=== PATIENT | female | born 1985 | race Caucasian/White ===

== ENCOUNTER → 2016-12-08 | Outpatient (CLI) | payer BC, OTHER ==
[~2016-12-08] MED LIST: PRENTAB26 PO
== END | disposition home or self-care (01) ==
LOC: C.LAB 18:25
PROVIDERS: ATTEND Obstetrics & Gynecology
DX: Z34.81 Encounter for supervision of other normal pregnancy, first trimester (principal)

== ENCOUNTER → 2016-12-10 | Outpatient (CLI) | payer BC, OTHER | END | disposition home or self-care (01) | LOC: C.LAB 17:54 | PROVIDERS: ATTEND Obstetrics & Gynecology | DX: Z34.81 Encounter for supervision of other normal pregnancy, first trimester (principal) ==

== ENCOUNTER → 2016-12-16 | Outpatient (CLI) | payer BC, OTHER ==
[2016-12-20 01:31] LABS: CHLAMYDIA TRACH RNA*** NOT DETECTED (NOT DETECTED); GC (NEIS GONORRHOEAE)RNA** NOT DETECTED (NOT DETECTED)
== END | disposition home or self-care (01) ==
LOC: C.LABSPEC 14:51
PROVIDERS: ATTEND Obstetrics & Gynecology
DX: Z34.81 Encounter for supervision of other normal pregnancy, first trimester (principal)

== ENCOUNTER → 2017-01-29 | Outpatient (CLI) | payer BC, OTHER ==
[2017-01-29 09:59] LABS: BASO % 0.5 %; BASO ABS # 0.03 K/uL (0-0.2); COMPLETE YES; EOS % 3.1 %; HEMATOCRIT 37.4 % (37-47); IG% 0.2 %; LYMPH % 20.8 %; LYMPH ABS # 1.32 K/uL (1.2-3.4); MEAN CORPUSCULAR HEMOGLOBIN 30.5 pg (25-34); MEAN CORPUSCULAR HGB CONC 34.2 g/dl (32-36); MEAN PLATELET VOLUME 9.9 fL (7.4-10.4); MONO % 4.2 %; NEUT % 71.2 %; PLATELET COUNT 215 K/uL (130-400); WHITE BLOOD COUNT 6.36 K/uL (4.8-10.8)
[2017-01-29 11:46] LABS: GTGD 50 Grams
== END | disposition home or self-care (01) ==
LOC: C.LAB 07:01
PROVIDERS: ATTEND Obstetrics & Gynecology
DX: Z34.82 Encounter for supervision of other normal pregnancy, second trimester (principal)

== ENCOUNTER → 2017-03-02 | Outpatient (CLI) | payer BC, OTHER | END | disposition home or self-care (01) | LOC: C.LABSPEC 15:42 | PROVIDERS: ATTEND Obstetrics & Gynecology | DX: O26.892 Other specified pregnancy related conditions, second trimester (principal); R05 Cough; O99.512 Diseases of the respiratory system complicating pregnancy, second trimester; J02.9 Acute pharyngitis, unspecified ==

== ENCOUNTER 2017-07-20 03:08 | Inpatient (IN) | payer BC, OTHER ==
[~2017-07-20] VITALS: Ht 175.3 cm; Wt 95.0 kg
[2017-07-22] MEDS ORDERED: LACTATED RINGER'S 1000ML 1,000 ML IV PRN (09:45)
[2017-07-22] MEDS ORDERED: LACTATED RINGER'S 1000ML 500 ML IV PRN ×2 (09:48→15:24)
[2017-07-22] MEDS ORDERED: OXYTOCIN 30 UNITS/500ML NSS IV PRN ×2 (10:00→23:45)
[2017-07-22 10:17] VITALS: Ht 175.3 cm; Wt 95.0 kg
[2017-07-22] MEDS ORDERED: PRENTAB26 PO (10:19)
[2017-07-22 10:22] LABS: HEMATOCRIT 39.1 % (37-47); MEAN CELL VOLUME 92.2 fL (80-100); MEAN CORPUSCULAR HEMOGLOBIN 30.9 pg (25-34); MEAN CORPUSCULAR HGB CONC 33.5 g/dl (32-36); MEAN PLATELET VOLUME 9.9 fL (7.4-10.4); PLATELET COUNT 188 K/uL (130-400); RED BLOOD COUNT 4.24 M/uL (4.2-5.4); WHITE BLOOD COUNT 9.21 K/uL (4.8-10.8)
[2017-07-22] MEDS: LACTATED RINGER'S 1000ML 1,000 ML IV SCH ×3 (11:05→22:06)
[2017-07-22] MEDS ORDERED: FENTANYL CITRATE INJ 50 MCG/1 ML 2 ML VIAL ONE (14:42)
[2017-07-22] MEDS ORDERED: BUPIVACAINE 0.25% 30 ML VIAL ONE (14:42)
[2017-07-22] MEDS ORDERED: FENTANYL 2MCG/ML ROPIV 1.25MG/ML 100ML BAG EPI ONE (14:42)
[2017-07-22] MEDS ORDERED: EpHEDrine SULFATE INJ 50 MG/ML AMP ONE (14:42)
[2017-07-22] MEDS ORDERED: NALOXONE HCL INJ 0.4 MG/1 ML VIAL/CARP IV PRN (15:30)
[2017-07-22] MEDS ORDERED: EpHEDrine SULFATE INJ 50 MG/ML AMP IV PRN (15:30)
[2017-07-22] MEDS ORDERED: FENTANYL 2MCG/ML ROPIV 1.25MG/ML 100ML BAG EPI PRN (15:30)
[2017-07-22] MEDS ORDERED: METHYLERGONOVINE MALEATE 0.2 MG/ML AMP ONE (23:12)
[2017-07-22] MEDS ORDERED: OXYCODONE/ACETAMINOPHEN 5-325 TAB PO PRN (23:45)
[2017-07-22] MEDS ORDERED: BENZOCAINE 20% AER SPR 82.5 GM CAN EXT PRN (23:45)
[2017-07-22] MEDS ORDERED: HYDROCORTISONE ACETATE 25 MG SUPP PR PRN (23:45)
[2017-07-22] MEDS ORDERED: DIPHTHERIA/TETANUS/PERTUSSIS 0.5 ML SYR/VIAL IM. ONE (23:45)
[2017-07-22] MEDS ORDERED: SUPERCREAM 0.870 % 15GM JAR EXT PRN (23:45)
[2017-07-22] MEDS ORDERED: ACETAMINOPHEN/CODEINE 300/30MG TAB PO PRN (23:45)
[2017-07-22] MEDS ORDERED: LANOLIN OINT EXT PRN ×2 (23:45)
[2017-07-22] MEDS ORDERED: METHYLERGONOVINE MALEATE 0.2 MG/ML AMP IM ONE (23:45)
--- NOTE | 2017-07-22 23:48 | Anesthesia Procedure Note ---
Anesthesia Epidural Removal Nt Date & Time Jul 22, 2017 at 23:48 Vital Signs Pain Intensity: 0.0 Notes Mental Status: alert / awake / arousable, participated in evaluation Nausea / Vomiting: adequately controlled Pain: adequately controlled Airway Patency, RR, SpO2: stable & adequate BP & HR: stable & adequate Hydration State: stable & adequate Neuraxial Anesthesia: was administered Anesthetic Complications: no major complications apparent, pt satisfied with anesthetic care Epidural: removed without complications, with tip intact
[2017-07-23] VITALS (7 sets, daily range): BP systolic 103–129; BP diastolic 60–79; PULSE 65–85; TEMP 36.5–36.9; O2SAT 96–97
--- NOTE | 2017-07-23 01:02 | DELIVERY SUMMARY ---
DATE OF OPERATION: 07/22/2017 The patient is a 32-year-old 2, para 1. She has had 1 spontaneous AB first trimester. She is rubella immune. Beta strep screen negative. Glucose screen good. She was admitted for induction of labor, being past her due date, which was 07/15/2017. Her cervix was ripe on admission, 4+ cm. She was started on IV Pitocin and eventually she developed the labor pattern. Membranes were ruptured, fluid was clear. She received epidural anesthesia for pain control and the Pitocin was turned up until she had regular pattern of about contraction every 2-3 minutes. She slowly but steadily delivered a live female via direct occiput anterior position over an intact perineum. Infant was suctioned through the mouth and the nose. Shoulders were delivered with a mild amount of difficulty. Cord was clamped, cut by the father. There was some terminal meconium noted. With IV Pitocin running, the placenta was removed intact. Inspection of the perineum revealed 2 superficial sulcus lacerations that also extended into the labia. Both of these were repaired with a running 2-0 Vicryl. Then there was another superficial laceration on the patient's left labia, which was repaired with 3-0 chromic. A small perineal laceration which was bleeding was repaired with 3-0 chromic. Following this, vag examination revealed no hematoma formation or sponges in the vagina and uterus contracted nicely with a combination of IV Pitocin and IM Methergine. Estimated blood loss was about 600 mL. I attest to the content of the Intraoperative Record and any orders documented therein. Any exception s are noted below.
[2017-07-23] MEDS: IBUPROFEN 600 MG TAB PO PRN ×3 (01:49→19:21)
[2017-07-23] MEDS: ACETAMINOPHEN/CODEINE 300/30MG TAB PO PRN ×3 (01:53→19:21)
[2017-07-23 06:39] LABS: HEMATOCRIT 35.8 % (37-47)
[2017-07-23] MEDS: PRENATAL VITAMIN TAB PO SCH (08:38)
[2017-07-23] MEDS: DOCUSATE SODIUM 100 MG CAP PO SCH ×2 (08:38→20:12)
[2017-07-23] MEDS: FERROUS SULFATE 325 MG TAB PO SCH (08:38)
[2017-07-23] MEDS: ACETAMINOPHEN 325 MG TAB PO PRN (08:39)
--- NOTE | 2017-07-23 18:03 | Progress Note ---
Subjective Jul 23, 2017. Subjective conversation w/ patient Ambulation: ambulating normally Voiding: no voiding problems Passing Gas: Yes Diet Tolerance: Regular Diet Lochia: Small Feeding Type: Breast Feeding Review of Systems Constitutional: + fever Objective Vital Signs Date Time Temp Pulse Resp B/P (MAP) Pulse Ox O2 Delivery O2 Flow Rate FiO2 07/23/17 16:30 Room Air 07/23/17 16:30 36.8 66 18 106/66 (79) Room Air 07/23/17 11:45 36.7 85 16 105/73 (84) 97 Room Air 07/23/17 08:15 Room Air 07/23/17 08:15 36.6 65 16 104/68 (80) 96 Room Air 07/23/17 04:00 36.5 70 16 129/79 (96) Room Air 07/23/17 02:15 Room Air 07/23/17 02:15 36.7 66 16 107/64 (78) Room Air Physical Exam General Appearance: WELL-APPEARING Fundus: Firm, Non-Tender Extremities: no pedal edema, no calf tenderness Laboratory Results Last 24 Hours Test 07/23/17 06:15 Hemoglobin 12.1 g/dL Hematocrit 35.8 % Assessment and Plan Post- Day#: 1
[2017-07-23] MEDS ORDERED: BISACODYL 5 MG TABEC PO SCH (20:00)
[2017-07-24] MEDS: ACETAMINOPHEN 325 MG TAB PO PRN ×3 (02:13→13:33)
[2017-07-24] MEDS ORDERED: BISACODYL 10 MG SUPP PR PRN (07:00)
[2017-07-24 07:10] VITALS: BP 101/66; PULSE 90; TEMP 36.2; O2SAT 96
--- NOTE | 2017-07-24 07:34 | Progress Note ---
Subjective Jul 24, 2017. Subjective conversation w/ patient Ambulation: ambulating normally Voiding: no voiding problems Passing Gas: Yes Diet Tolerance: Clear Liquids Lochia: Small Feeding Type: Breast Feeding Review of Systems Constitutional: + fever Objective Vital Signs Date Time Temp Pulse Resp B/P (MAP) Pulse Ox O2 Delivery O2 Flow Rate FiO2 07/24/17 07:10 36.2 90 20 101/66 (78) 96 Room Air 07/23/17 23:40 Room Air 07/23/17 23:40 36.6 79 18 103/66 (78) Room Air 07/23/17 20:00 36.9 81 18 105/60 (75) Room Air 07/23/17 16:30 Room Air 07/23/17 16:30 36.8 66 18 106/66 (79) Room Air 07/23/17 11:45 36.7 85 16 105/73 (84) 97 Room Air 07/23/17 08:15 Room Air 07/23/17 08:15 36.6 65 16 104/68 (80) 96 Room Air Physical Exam General Appearance: WELL-APPEARING Abdomen: non tender Fundus: Firm, Non-Tender Extremities: no pedal edema, no calf tenderness Assessment and Plan Post- Day#: 2
--- NOTE | 2017-07-24 07:36 | Discharge Instructions ---
Discharge Instructions Date of Service Jul 24, 2017. Admission Reason for Admission: IUP Discharge Discharge Diagnosis / Problem: post term induction Discharge Goals Goal(s): Routine recovery after delivery Activity Recommendations Activity Limitations: as noted below ACTIVITY RECOMMENDATIONS: * Gradual return to full activity over the next 2-3 weeks. * No lifting - nothing heavier than baby over the next 2-3 weeks. * Do not engage in vigorous exercise, sexual activity or sports until cleared by your physician. * Do not drive or operate any motorized equipment until cleared by your physician. * You may shower/bathe daily. DIET: Resume Previous Diet If Breast-feeding: * Increase caloric intake by 500 calories, eat 3 well balanced meals, 2 high protein snacks a day and drink 6-8 8oz. glasses of fluid per day. BREAST CARE: If you are not breast feeding: * Wear a supportive bra 24 hours a day for one to two weeks. * Avoid stimulating your breasts and nipples as much as possible during the first few weeks after delivery. * When taking a shower, have the warm water hit your back, not breasts. * When your breasts feel full, apply ice packs. Usually three to four times a day helps ease the discomfort. * Take a mild pain medication (Tylenol / Motrin) when you are uncomfortable. If breast feeding: * Use breast milk to lubricate nipples. Lansinoh cream may be used for sore nipples. You do not need to remove cream prior to breast feeding. If using a different brand of cream, check the label for directions regarding removal of cream prior to nursing. * Wear a supportive bra. * If having problems with breasts or breast feeding, call a car sales consultant or your health care provider. OVER THE COUNTER MEDICATION: * For discomfort or pain, you may use Acetaminophen (Tylenol), Ibuprofen (Advil ), or Naproxen (Aleve) following the package directions. * For constipation you may use Colace following the package directions. SPECIAL CARE INSTRUCTIONS: * Vaginal rest (no tampons, douching, intercourse) until after doctor 's visit. * control as discussed with doctor. * Verbalizes understanding of car seat law as reviewed with patient nursing. * Car Seat hand-out given and reviewed with patient by nursing. * Shaken baby information reviewed with patient by nursing. Call you doctor if: * Temperature greater than or equal to 100.4 degrees F or 38.0 degrees C. Take your temperature twice daily for a week. * Bleeding becomes heavier than the heaviest part of your period - saturating a sanitary pad within an hour. * Passing large clots. * Bleeding has a foul smelling odor. * Signs and symptoms of phlebitis: leg pain, warm, red or swollen area on leg. * "Baby Blues" lasting longer than two weeks. ++ If you have had a and incision has increased pain, redness, swelling, presence of any drainage, or if the incision starts to open up. If you have any questions or concerns, call your health care practitioner at [phone]. FOLLOW-UP VISIT: Please call the office at to schedule a 6 week examination. . Instructions / Follow-Up Instructions / Follow-Up ACTIVITY RECOMMENDATIONS: * Gradual return to full activity over the next 2-3 weeks. * No lifting - nothing heavier than baby over the next 2-3 weeks. * Do not engage in vigorous exercise, sexual activity or sports until cleared by your physician. * Do not drive or operate any motorized equipment until cleared by your physician. * You may shower/bathe daily. DIET: Resume Previous Diet If Breast-feeding: * Increase caloric intake by 500 calories, eat 3 well balanced meals, 2 high protein snacks a day and drink 6-8 8oz. glasses of fluid per day. BREAST CARE: If you are not breast feeding: * Wear a supportive bra 24 hours a day for one to two weeks. * Avoid stimulating your breasts and nipples as much as possible during the first few weeks after delivery. * When taking a shower, have the warm water hit your back, not breasts. * When your breasts feel full, apply ice packs. Usually three to four times a day helps ease the discomfort. * Take a mild pain medication (Tylenol / Motrin) when you are uncomfortable. If breast feeding: * Use breast milk to lubricate nipples. Lansinoh cream may be used for sore nipples. You do not need to remove cream prior to breast feeding. If using a different brand of cream, check the label for directions regarding removal of cream prior to nursing. * Wear a supportive bra. * If having problems with breasts or breast feeding, call a car sales consultant or your health care provider. OVER THE COUNTER MEDICATION: * For discomfort or pain, you may use Acetaminophen (Tylenol), Ibuprofen (Advil ), or Naproxen (Aleve) following the package directions. * For constipation you may use Colace following the package directions. SPECIAL CARE INSTRUCTIONS: * Vaginal rest (no tampons, douching, intercourse) until after doctor 's visit. * control as discussed with doctor. * Verbalizes understanding of car seat law as reviewed with patient nursing. * Car Seat hand-out given and reviewed with patient by nursing. * Shaken baby information reviewed with patient by nursing. Call you doctor if: * Temperature greater than or equal to 100.4 degrees F or 38.0 degrees C. Take your temperature twice daily for a week. * Bleeding becomes heavier than the heaviest part of your period - saturating a sanitary pad within an hour. * Passing large clots. * Bleeding has a foul smelling odor. * Signs and symptoms of phlebitis: leg pain, warm, red or swollen area on leg. * "Baby Blues" lasting longer than two weeks. ++ If you have had a and incision has increased pain, redness, swelling, presence of any drainage, or if the incision starts to open up. If you have any questions or concerns, call your health care practitioner at [phone]. FOLLOW-UP VISIT: Please call the office at to schedule a 6 week examination. Current Hospital Diet Patient's current hospital diet: Regular Diet Discharge Diet Recommended Diet: Regular Diet Pending Studies Studies pending at discharge: no Medical Emergencies . Who to Call and When: Medical Emergencies: If at any time you feel your situation is an emergency, please call 911 immediately. . Non-Emergent Contact Non-Emergency issues call your: Credit Collections Rep Call Non-Emergent contact if: temperature is above 100.5 . . "Provider Documentation" section prepared by Navneet Vasquez. . VTE Core Measure Inpt VTE Proph given/why not?: Treatment not indicated
[2017-07-24] MEDS: FERROUS SULFATE 325 MG TAB PO SCH (08:06)
[2017-07-24] MEDS: DOCUSATE SODIUM 100 MG CAP PO SCH (08:06)
[2017-07-24] MEDS: PRENATAL VITAMIN TAB PO SCH (08:06)
[2017-07-24] MEDS: IBUPROFEN 600 MG TAB PO PRN ×2 (08:07→13:33)
[2017-07-24 09:25] VITALS: O2SAT 96
[2017-07-24 16:03] VITALS: BP_DIAS 66; PULSE 90; TEMP 36.2
== END 2017-07-24 16:03 | disposition home or self-care (01) | DRG 775 ==
LOC: C.LD 07-22 07:45 → C.OBG 07-23 02:36
PROVIDERS: ADMIT Obstetrics & Gynecology; ATTEND Obstetrics & Gynecology
PROC: 10E0XZZ Delivery of Products of Conception, External Approach (ICD-10-PCS; principal; 2017-07-22)
PROC: 0HQ9XZZ Repair Perineum Skin, External Approach (ICD-10-PCS; principal; 2017-07-22)
PROC: 3E053VJ Introduction of Other Hormone into Peripheral Artery, Percutaneous Approach (ICD-10-PCS; 2017-07-22)
DX: O48.0 Post-term pregnancy (principal); Z37.0 Single live birth; O09.893 Supervision of other high risk pregnancies, third trimester; O70.0 First degree perineal laceration during delivery; Z3A.41 41 weeks gestation of pregnancy

== ENCOUNTER → 2017-09-28 | Outpatient (CLI) | payer BC ==
[2017-09-29 14:51] LABS: URINE APPEARANCE CLEAR (CLEAR); URINE BILIRUBIN NEG (NEG); URINE COLOR YELLOW; URINE NITRITE NEG (NEG); URINE PH 7.5 (4.5-7.5); URINE SPECIFIC GRAVITY 1.015 (1.000-1.030); UROBILINOGEN NEG (NEG)
[2017-09-29 14:56] LABS: MANUAL MICROSCOPIC REQUIRED? NO; REVIEW REQ? NO
== END | disposition home or self-care (01) ==
LOC: C.LABSPEC 14:06
PROVIDERS: ATTEND Obstetrics & Gynecology
DX: R30.0 Dysuria (principal)

== ENCOUNTER 2019-07-26 11:51 | Inpatient (IN) ==
[2019-07-27] MEDS ORDERED: OXYTOCIN 30 UNITS/500 ML BAG IV PRN ×3 (09:44→18:39)
[2019-07-27 10:06] LABS: Hematocrit (blood only) 34.4 % (37-47); Hemoglobin 11.5 g/dL (12.0-16.0); Mean Corpuscular Volume 88.4 fL (80-100); Mean Platelet Volume 10.2 fL (7.4-10.4); Platelet Count 175 K/uL (130-400); RDW Coefficient of Variation 13.6 % (11.5-14.5); RDW Standard Deviation 44.2 fL (36.4-46.3); Red Blood Count 3.89 M/uL (4.2-5.4); White Blood Count 7.26 K/uL (4.8-10.8)
[2019-07-27 10:09] LABS: Mean Corpuscular Hgb Conc 33.4 g/dL (32-36)
[2019-07-27] MEDS: LACTATED RINGER'S 1,000 ML IV PRN ×2 (10:26→13:40)
[2019-07-27] MEDS: cephALEXin 500 MG CAP PO SCH ×3 (12:45→21:05)
[2019-07-27] MEDS ORDERED: BUPIVACAINE 0.25% 30 ML VIAL ONE (15:22)
[2019-07-27] MEDS ORDERED: ePHEDrine sulfate 50 MG/ML AMP ONE (15:23)
[2019-07-27] MEDS ORDERED: fentaNYL citrate 100 MCG/2 ML VIAL ONE (15:23)
[2019-07-27] MEDS ORDERED: fentaNYL 2MCG/ML ROPIV 1.25MG/ML 100 ML BAG EPI ONE (15:24)
--- NOTE | 2019-07-27 15:35 | Anesthesiology Consultation ---
Date of Service July 27, 2019 Assessment & Plan Chart Review Chart Review: Acceptable Risk for Surgery, Patient NOT seen in Pre Admission Testing and Acceptable Risk for Labor Epidural Consults Requested none ASA ASA2 Proposed Anesthesia Anesthesia Type: General and Labor Epidural Risk / Benefits Reviewed With: PT / POA / Parent / Guardian, Accepts Plan and Informed Consent Obtained History Height/Weight Height: 5 ft 9 in Weight: 91.626 kg Allergies Allergy/AdvReac Type Severity Reaction Status Date / Time amoxicillin Allergy Mild RASH Verified 07/27/19 08:57 clavulanic acid Allergy Mild RASH Verified 07/27/19 08:57 Medications Home Medications Medication Instructions Recorded Confirmed Last Taken PNV [id number]-ferrous fumarate-FA 1 tab PO DAILY 07/27/19 07/27/19 07/27/19 06:20 [] cephalexin [Keflex] 500 mg PO QID 07/27/19 07/27/19 07/27/19 06:20 Active Medications Generic Name Dose Route Start Last Admin Trade Name Freq PRN Reason Stop Dose Admin Cephalexin HCl 500 mg 07/27/19 13:00 07/27/19 12:45 Keflex PO 08/06/19 12:59 500 mg QID VONNIE Administration Lactated Ringer's 1,000 mls @ 125 mls/hr 07/27/19 09:44 07/27/19 15:06 Lr IV 07/29/19 09:43 125 mls/hr .Q8H PRN Infusion L&D Protocol Protocol Oxytocin 30 units in 500 mls @ 16 mls/hr 07/27/19 09:47 07/27/19 14:30 Pitocin IV 07/29/19 09:46 0.96 units/hr .Q24H PRN 16 mls/hr Labor Induction/Augmentation Titration Protocol 0.96 UNITS/HR NPO Date Last Intake of Fluids: 07/27/19 Time Last Intake of Fluids: 15:00 Date Last Intake of Solids: 07/27/19 Time Last Intake of Solids: 07:30 Past Medical History Medical History Dexter teeth removed 2005 Exercise / Class Metabolic Activity II 4-5 Yardwork/Stairs/Walk up hill Past Surgical History Surgical History H/O dilation and curettage times 3; 2016 History of cholecystectomy 2007 Past Anesthesia History No Hx of Anesthesia Complications and No Family Hx of Anesthesia Complications History of PONV No Hx of PONV and No Hx of Motion Sickness Social History Smoking Status: Never smoker Hx Alcohol Use: No Hx Substance Use: No Physical Exam Vital Signs Last Vital Signs Temp 37.1 C 07/27/19 15:15 Pulse 71 07/27/19 15:29 Resp 20 07/27/19 15:15 BP 122/72 07/27/19 15:13 Pulse Ox 98 07/27/19 15:29 Constitutional + obese ENMT Mouth: no dentition abnormality Thyromental Distance: > or= 3.5 Finger Breadths Mallampati Class: II Neck normal visual inspection and trachea midline; neck extension not limited Respiratory normal respiratory effort Auscultation: lungs clear to auscultation bilaterally Cardiovascular Rate/Rhythm: regular rate and regular rhythm Heart Sounds: no murmur Musculoskeletal Spine: lumbar spine normal to inspection; normal cervical ROM Neurologic moves all extremities Motor/Sensory: no sensory deficit Psychiatric Orientation: alert and oriented x 3 Testing Laboratory Results 07/27/19 09:51
[2019-07-27] MEDS ORDERED: NALBUPHINE HCL INJ 10 MG/ML AMP IV PRN (16:02)
[2019-07-27] MEDS ORDERED: PROMETHAZINE HCL 25 MG in SODIUM CHLORIDE 0.9% 50 ML IV PRN (16:02)
[2019-07-27] MEDS ORDERED: NALOXONE HCL 0.4 MG/1 ML VIAL/CARP IV PRN (16:02)
[2019-07-27] MEDS ORDERED: NALOXONE HCL 1 MG in SODIUM CHLORIDE 0.9% 1000ML 1,000 ML IV PRN (16:02)
[2019-07-27] MEDS ORDERED: ONDANSETRON INJ 2 MG/ML 2 ML VIAL IV PRN (16:02)
[2019-07-27] MEDS ORDERED: fentaNYL 2MCG/ML ROPIV 1.25MG/ML 100 ML BAG EPI PRN (16:02)
[2019-07-27] MEDS ORDERED: ePHEDrine sulfate 50 MG/ML AMP IV PRN (16:02)
[2019-07-27] MEDS ORDERED: DiphenhydrAMINE HCL 50 MG/ML VIAL IV PRN (16:02)
[2019-07-27] MEDS ORDERED: BENZOCAINE 20% AER SPR 82.5 GM CAN EXT PRN (18:39)
[2019-07-27] MEDS ORDERED: ACETAMINOPHEN 325 MG TAB PO PRN (18:39)
[2019-07-27] MEDS ORDERED: HYDROCORTISONE ACETATE 25 MG SUPP PR PRN (18:39)
[2019-07-27] MEDS ORDERED: BISACODYL 10 MG SUPP PR PRN (18:39)
[2019-07-27] MEDS ORDERED: DIPHTHERIA/TETANUS/PERTUSSIS 0.5 ML SYR/VIAL IM ONE (18:39)
[2019-07-27] MEDS ORDERED: ACETAMINOPHEN W/CODEINE #3 1 TAB PO PRN (18:39)
[2019-07-27] MEDS ORDERED: OXYCODONE/ACETAMINOPHEN 5mg/325mg TAB PO PRN (18:39)
[2019-07-27] MEDS ORDERED: SUPERCREAM 0.870% 15 GM JAR EXT PRN (18:39)
--- NOTE | 2019-07-27 19:03 | Anesthesia Procedure Note ---
Date of Service July 27, 2019 Anesthesia Post Epidural Note Vital Signs Vital Signs: Temp Pulse Resp BP Pulse Ox 36.8 C 66 18 127/59 L 99 07/27/19 16:55 07/27/19 18:35 07/27/19 16:55 07/27/19 18:35 07/27/19 18:19 Notes Mental Status: alert / awake / arousable Nausea / Vomiting: adequately controlled Pain: adequately controlled Airway Patency, RR, SpO2: stable & adequate BP & HR: stable & adequate Hydration State: stable & adequate Neuraxial Anesthesia: was administered and sensory block is resolving Anesthetic Complications: no major complications apparent Epidural: Removed without complications and With tip intact
[2019-07-27] MEDS: IBUPROFEN 600 MG TAB PO PRN (21:51)
--- NOTE | 2019-07-28 01:08 | Delivery Summary ---
DATE OF OPERATION: 07/27/2019 DELIVERY NOTE: Ms. Pollock is a 34-year-old 3, para 2. She had 1 spontaneous AB. SHE IS ALLERGIC TO AUGMENTIN THAT GIVES HER RASH. She is on Zoloft. She had an uneventful obstetrical history except for the fact that her daughter weighed 9 pounds 13 ounces at 41 weeks gestation. Blood type is A positive, rubella immune. Vaginal beta strep negative. She was brought in for induction at 39+ weeks gestation due to macrosomia. On her admission, her cervix was 4-5 cm. We started her on IV Pitocin. She began to get contractions. Cervix started to slowly dilate when she was about 7 cm. Even though the pain was not that severe, she received epidural anesthesia. Following the epidural anesthesia, the membranes were ruptured surgically, some port wine staining color of the amniotic fluid. With Pitocin running, she went to full dilatation. With 2 pushes, pushed out a live female via direct occiput anterior position over an intact perineum. Infant was suctioned through the mouth and the nose. Cord was clamped, cut by the father. Cord blood was collected for cord blood banking. We obtained a good amount after sterilizing the cord and then injecting the needle. After the cord blood banking sample was taken, with IV Pitocin running, the placenta was removed intact. Inspection of the perineum revealed a first-degree laceration. The vaginal mucosa was approximated out and to beyond the hymenal ring with a running suture of 2-0 Vicryl. A deep suture of 2-0 Vicryl was used to approximate the bulbocavernosus muscle, separate deep suture was used to approximate the perineal body, a running subcuticular suture was used to approximate the perineal skin edges. Following this, sponges were removed from the vagina. A rectal exam was done to ensure there were no stitches through the rectum, there were not. Estimated blood loss was 400 mL. The patient tolerated the procedure well. RICHIE
[2019-07-28] MEDS: IBUPROFEN 600 MG TAB PO PRN ×5 (03:46→20:43)
[2019-07-28 06:54] LABS: Hematocrit (blood only) 32.7 % (37-47); Hemoglobin 10.8 g/dL (12.0-16.0); Mean Corpuscular Volume 88.9 fL (80-100); Mean Platelet Volume 10.2 fL (7.4-10.4); Platelet Count 147 K/uL (130-400); RDW Coefficient of Variation 13.4 % (11.5-14.5); RDW Standard Deviation 44.3 fL (36.4-46.3); Red Blood Count 3.68 M/uL (4.2-5.4); White Blood Count 8.84 K/uL (4.8-10.8)
[2019-07-28] MEDS: PRENATAL VITAMIN 1 TAB PO SCH (08:33)
[2019-07-28] MEDS: DOCUSATE SODIUM 100 MG CAP PO SCH ×2 (08:33→20:42)
[2019-07-28] MEDS: FERROUS SULFATE 325 MG TAB PO SCH (08:33)
[2019-07-28] MEDS: cephALEXin 500 MG CAP PO SCH ×4 (08:34→20:43)
--- NOTE | 2019-07-28 13:23 | Obstetrical Progress Note ---
Date of Service July 28, 2019 Physical Exam Physical Exam: abdomen soft and non tender vaginal bleeding scant to moderate hgb 10.4 no calf tenderness ambulating well Results & Data Vital Signs (Past 12 Hours) Vital Signs Temp Pulse Resp BP Pulse Ox 07/28/19 08:00 36.8 C 60 20 107/71 99 07/28/19 04:30 36.5 C 65 18 104/65 98 07/28/19 01:49 36.6 C 60 20 107/67 95
[2019-07-28] MEDS ORDERED: BISACODYL 5 MG TABEC PO SCH (20:00)
[2019-07-29] MEDS: IBUPROFEN 600 MG TAB PO PRN ×5 (04:20→20:05)
[2019-07-29 06:50] LABS: Hematocrit (blood only) 33.3 % (37-47); Hemoglobin 10.9 g/dL (12.0-16.0)
--- NOTE | 2019-07-29 07:39 | Obstetrical Progress Note ---
Date of Service July 29, 2019 Physical Exam Physical Exam: abdomen soft and non tender vaginal bleeding scant to moderate hgb 10.9 no calf tenderness ambulating well Results & Data Vital Signs (Past 12 Hours) Vital Signs Temp Pulse Pulse Resp BP BP Pulse Ox 07/28/19 23:30 36.6 C 55 L 20 101/56 L 98 07/28/19 21:45 36.7 C 59 L 20 105/69 97
[2019-07-29] MEDS: FERROUS SULFATE 325 MG TAB PO SCH (08:34)
[2019-07-29] MEDS: DOCUSATE SODIUM 100 MG CAP PO SCH (08:34)
[2019-07-29] MEDS: PRENATAL VITAMIN 1 TAB PO SCH (08:35)
[2019-07-29] MEDS: cephALEXin 500 MG CAP PO SCH ×3 (08:35→19:31)
== END 2019-07-29 22:57 | disposition home or self-care (01) | DRG 807 ==
LOC: 4S1 07-27 08:30 → 4S2 07-27 22:19